=== PATIENT | male | born 2000 | race African-American/Black ===

== ENCOUNTER 2020-05-03 13:56 | Emergency (ER) | payer SELFPAY ==
--- NOTE | ~2020-05-03 | XR_ITS ---
EXAMINATION: XR foot LT min 3V DATE: 05/03/2020 14:25 INDICATION: Left foot pain. TECHNIQUE: 4 views of left foot were obtained. COMPARISON: None. FINDINGS: There is mild hallux valgus. No fracture. Joint spaces are normal. IMPRESSION: 1. Mild hallux valgus. Reviewed, dictated and finalized at location A. IMPRESSION: 1. Mild hallux valgus.
[2020-05-03 14:00] VITALS: BP 115/66; PULSE 77; RESP 18; TEMP 36.3; O2SAT 100
--- NOTE | 2020-05-03 14:34 | ED.LOWEXIN ---
HPI - Extremity Injury (Lower) General Chief Complaint: Extremity Injury, Lower Stated Complaint: L foot Time Seen by Provider: 05/03/20 14:00 Source: patient Mode of arrival: ambulatory Limitations: no limitations History of Present Illness HPI Narrative: Patient is a 19-year-old male who presents complaining of left foot pain intermittently x6 months, reports increasing pain over the past week. Reports possible injury while dancing a few weeks ago . He reports increased pain with ambulation and dancing, denies taking [id number] medications for pain. He denies all other complaints. MD complaint: foot injury Related Data Home Medications Medication Instructions Recorded Confirmed No Home Medications 05/03/20 05/03/20 Allergies Allergy/AdvReac Type Severity Reaction Status Date / Time No Known Allergies Allergy Unverified 07/13/17 06:41 Review of Systems Review of Systems: Narrative: CONSTITUTIONAL: Denies fever, chills, or sweats. EYES: Denies visual changes, redness, or discharge. ENT: Denies rhinorrhea, congestion, sore throat, or otalgia. CARDIOVASCULAR: Denies chest pain, palpitations, or edema. RESPIRATORY: Denies cough or dyspnea. GASTROINTESTINAL: Denies abdominal pain, nausea, vomiting, or diarrhea. GENITOURINARY: Denies dysuria or hematuria. SKIN: Denies rash or itching. MUSCULOSKELETAL: Reports left foot pain NEUROLOGIC: Denies headache, numbness, dizziness, or weakness. PSYCHIATRIC: Denies anxiety or depression. [facility] Past Medical History Medical History (Updated 05/03/20 @ 14:59 by RICHIE Rodriguez) No significant past medical history Surgical History Surgical History (Updated 05/03/20 @ 14:36 by RICHIE Rodriguez) No significant past surgical history Social History Social History (Updated 05/03/20 @ 14:37 by RICHIE Rodriguez) Smoking status: Never smoker Alcohol intake: current Alcohol use details: occasional Substance use: never Living arrangements: with family Gender identity (if verbalized by the patient): Male Exam Narrative: Exam Narrative: GENERAL: Well-appearing, well-nourished, and in no acute distress. HEAD: Normocephalic, atraumatic. EYES: No redness or drainage. ENT: Mucous membranes pink and moist. CHEST: No respiratory distress. Clear to auscultation. HEART: Regular rate and rhythm. No murmur appreciated. Normal peripheral pulses. EXTREMITIES: Left great toe pain, no edema or erythema. Tenderness with palpation to dorsal base of great toe, no deformities SKIN: Warm, dry, no rash. NEURO: No focal deficits. Alert and oriented x3. Gait steady. PSYCH: Normal affect. No signs of depression or anxiety. Course Vital Signs Vital signs: Vital Signs Temperature 36.3 C L 05/03/20 14:00 Pulse Rate 77 05/03/20 14:00 Respiratory Rate 18 05/03/20 14:00 Blood Pressure 115/66 05/03/20 14:00 Pulse Oximetry 100 05/03/20 14:00 Temperature 36.3 C L 05/03/20 14:00 Pulse Rate 77 05/03/20 14:00 Respiratory Rate 18 05/03/20 14:00 Blood Pressure 115/66 05/03/20 14:00 Pulse Oximetry 100 05/03/20 14:00 Reviewed. Patient has been instructed to follow-up with his PCP regarding his blood pressure. MDM - Extremity Injury (Lower) MDM Narrative Medical decision making narrative: Patient has mild hallux valgus per x-ray. Discussed following up with podiatry and conservative measures of treatment. Discussed Tylenol and ibuprofen pain. Patient is stable for discharge to home with outpatient follow-up as discussed. Differential Diagnosis Differential diagnosis: Likely other (hallux valgus) Critical Care Time Critical Care Time Critical Care Time: No Discharge Plan Discharge Clinical Impression: Hallux valgus of left foot Patient Disposition: Home, Self-Care Condition: Stable Instructions: Deshawn (ED) Additional Instructions: You may take Tylenol or ibuprofen for pain. Follow-up with podiatry a
== END 2020-05-03 15:27 | disposition home or self-care (01) ==
PROVIDERS: Emergency Provider Nurse Practitioner
DX: M20.12 Hallux valgus (acquired), left foot (principal)
CPT/HCPCS: 73630; 99283

== ENCOUNTER 2020-09-08 23:00 | Emergency (ER) | payer SELFPAY ==
[2020-09-08 23:03] VITALS: BP 150/87; PULSE 84; RESP 18; TEMP 36.8; O2SAT 100
--- NOTE | 2020-09-08 23:31 | ED.GENADULT ---
HPI - General Adult General Chief complaint: Extremity Injury, Upper Stated complaint: croft bite to fingers Time Seen by Provider: 09/08/20 23:27 Source: patient Mode of arrival: ambulatory Limitations: no limitations History of Present Illness HPI narrative: 20-year-old with no major medical problems here with a complaint of blisters on the finger more so on the right fourth and third finger for past 2 days. Patient states that his sister car got stuck on the highway and he was trying to push a car during this process he was exposed to severe cold developed blisters on the next day. States that he is able to feel the fingers there is no numbness or tingling. Onset (ago): day(s) (2) Location: upper extremity Radiation: non-radiation Severity: mild Pain Consistency: constant Relieving factors: none Exacerbating factors: none Related Data Home Medications Medication Instructions Recorded Confirmed No Home Medications 05/03/20 05/03/20 Allergies Allergy/AdvReac Type Severity Reaction Status Date / Time No Known Allergies Allergy Unverified 09/08/20 23:07 Review of Systems Review of Systems: All systems reviewed & are unremarkable except as noted in HPI and below Constitutional: Constitutional: Reports no additional constitutional complaints Eyes: Eyes: Reports no additional eye complaints ENT: Reports system reviewed and no additional complaints, except as documented Cardiovascular: Cardiovascular: Reports no additional cardiovascular complaints Respiratory: Respiratory: Reports no additional respiratory complaints Gastrointestinal: Gastrointestinal: Reports no additional gastrointestinal complaints Musculoskeletal: Musculoskeletal: Reports no additional musculoskeletal complaints Neurologic: Reports system reviewed and no additional complaints, except as documented PMFSH Past Medical History Medical History No significant past medical history Surgical History Surgical History No significant past surgical history Social History Social History Smoking status: Never smoker Alcohol intake: current Substance use: never Gender identity (if verbalized by the patient): Male Sexual Orientation (if Verbalized by the Patient): Straight or Heterosexual Exam Narrative: Exam Narrative: GENERAL: Well-appearing, well-nourished, and in no acute distress. HEAD: Normocephalic, atraumatic. EYES: PERRLA and EOMI. NECK: Supple. CHEST: Clear to auscultation. No respiratory distress. HEART: Regular rate and rhythm. No murmur heard. Normal peripheral pulses.. EXTREMITIES: Normal range of motion. No edema. two small blsters on the distal tips of 3 and 4 th fingers on the right hand SKIN: Warm, dry, no rash. NEURO: No focal deficits. Alert and oriented x3. PSYCH: Normal mood and affect. Course Vital Signs Vital signs: Vital Signs Temperature 36.8 C 09/08/20 23:03 Pulse Rate 84 09/08/20 23:03 Respiratory Rate 18 09/08/20 23:03 Blood Pressure 150/87 H 09/08/20 23:03 Pulse Oximetry 100 09/08/20 23:03 Temperature 36.8 C 09/08/20 23:03 Pulse Rate 84 09/08/20 23:03 Respiratory Rate 18 09/08/20 23:03 Blood Pressure 150/87 H 09/08/20 23:03 Pulse Oximetry 100 09/08/20 23:03 Medical Decision Making Vital Signs Vital Signs: Vital Signs Temperature 36.8 C 09/08/20 23:03 Pulse Rate 84 09/08/20 23:03 Respiratory Rate 18 09/08/20 23:03 Blood Pressure 150/87 H 09/08/20 23:03 Pulse Oximetry 100 09/08/20 23:03 Temperature 36.8 C 09/08/20 23:03 Pulse Rate 84 09/08/20 23:03 Respiratory Rate 18 09/08/20 23:03 Blood Pressure 150/87 H 09/08/20 23:03 Pulse Oximetry 100 09/08/20 23:03 Discharge Plan Discharge Clinical Impression: Frostbite of finger Patient Disposition: [facility]
[2020-09-08 23:57] VITALS: BP 131/74; PULSE 79; RESP 16; TEMP 36.8; O2SAT 100
== END 2020-09-08 23:57 | disposition home or self-care (01) ==
LOC: ANHED 23:51
PROVIDERS: Emergency Provider Family Medicine
DX: T33.531A Superficial frostbite of right finger(s), initial encounter (principal); X31.XXXA Exposure to excessive natural cold, initial encounter
CPT/HCPCS: 99281

== ENCOUNTER 2024-03-18 14:36 | Emergency (ER) | payer OTHER, SELFPAY ==
[2024-03-18 15:12] VITALS: BP 124/76; PULSE 61; RESP 18; TEMP 38.4; O2SAT 100
--- NOTE | 2024-03-18 15:16 | ED.HA ---
HPI - Headache General Chief Complaint: Headache Stated Complaint: headache/not sleeping Time Seen by Provider: 03/18/24 15:16 Focused HPI: This is a 23 year old male that presents to the ER for viral symptoms present since last night. Reports headache, fevers, myalgias, sore throat. Denies cough, vomiting, diarrhea. GENERAL: Well-appearing, well-nourished, and in no acute distress. HEAD: Normocephalic, atraumatic. CHEST: Clear to auscultation. ?No respiratory distress. HEART: Regular rate and rhythm.? NEURO: ?Alert and oriented x3. Patient screened in triage and initial orders placed.? ?Additional care and disposition to be based upon?diagnostic testing and treatment. Related Data Home Medications Medication Instructions Recorded Confirmed No Home Medications 05/03/20 05/03/20 Allergies Allergy/AdvReac Type Severity Reaction Status Date / Time No Known Allergies Allergy Unverified 03/18/24 15:17 PMFSH Past Medical History Medical History No significant past medical history Surgical History Surgical History No significant past surgical history Social History Social History Smoking status: Never smoker Alcohol intake: current Alcohol use details: occasional Substance use: never Living arrangements: with family Gender identity (if verbalized by the patient): Male Sexual Orientation (if Verbalized by the Patient): Straight or Heterosexual Course Vital Signs Vital signs: Vital Signs Temperature 101.1 F H 03/18/24 15:12 Pulse Rate 61 03/18/24 15:12 Respiratory Rate 18 03/18/24 15:12 Blood Pressure 124/76 03/18/24 15:12 Pulse Oximetry 100 03/18/24 15:12 Oxygen Delivery Room Air 03/18/24 15:12 Temperature 101.1 F H 03/18/24 15:12 Pulse Rate 61 03/18/24 15:12 Respiratory Rate 18 03/18/24 15:12 Blood Pressure 124/76 03/18/24 15:12 Pulse Oximetry 100 03/18/24 15:12 Oxygen Delivery Room Air 03/18/24 15:12 MDM - Headache MDM Narrative Medical decision making narrative: Patient left after being seen by myself and initial workup before any further evaluation or management Lab Data Labs: Lab Results 03/18/24 Range/Units 15:41 Influenza A (RT-PCR) Negative (Negative) Influenza B (RT-PCR) Negative (Negative) RSV (RT-PCR) Negative (Negative) SARS-CoV-2 RNA (RT-PCR) Positive A (Negative) Group A Strep (PCR) Not detected (Negative) Discharge Plan Discharge Clinical Impression: COVID-19 Patient Disposition: [facility] After Seen by Prov Condition: Stable Prescriptions: No Action No Home Medications Follow-up/Referrals: PHYSICIAN,PHYSICAL EDUCATION INSTRUCTOR [Primary Care Provider] -
[2024-03-18 16:18] LABS: Strep Group A RT-PCR NOT DETECTED (Negative)
[2024-03-18 16:30] LABS: Influenza A QL RT-PCR Negative (Negative); Influenza B QL RT-PCR Negative (Negative); RSV RNA, RT-PCR Negative (Negative); SARS-CoV-2 RNA PCR Positive (Negative)
[2024-03-18] MEDS: ACETAMINOPHEN 500 MG TABLET 1000 MG PO (16:32)
--- NOTE | 2024-03-19 01:53 | PC.NURSE ---
Patient was called out for vitals in triage area. No answer.
--- NOTE | 2024-03-19 02:07 | PC.NURSE ---
Patient again called for triage area for vitals. No answer.
== END 2024-03-19 02:47 | disposition left against medical advice (07) ==
PROVIDERS: Emergency Provider Physician Assistant
DX: U07.1 COVID-19 (principal)
CPT/HCPCS: 87637; 87651; 99283; A9270